=== PATIENT | female | born 1995 | race Caucasian/White ===

== ENCOUNTER 2019-01-10 11:02 | Observation (INO) ==
[2019-01-10] MEDS ORDERED: Isovue-370 500 ML BOTTLE IVP ONE (11:28)
[2019-01-10 12:27] LABS: BUN/Creatinine Ratio 9 (6-26); Blood Urea Nitrogen 8 mg/dL (6-20); Calcium 9.2 mg/dL (8.6-10.3); Carbon Dioxide 24 mEq/L (23-29); Chloride 101 mEq/L (98-107); Glucose 98 mg/dL (70-105); Osmolality,Calculated 284 (280-300); Potassium 3.5 mEq/L (3.5-5.1); Sodium 138 mEq/L (136-145); eGFR For African Americans > 60 (> 60); eGFR For Non-African Americans > 60 (> 60)
--- NOTE | 2019-01-10 13:55 | Emergency Department Note ---
Disposition Clinical Impression: Pulmonary emboli Qualifiers: Pulmonary embolism type: unspecified Chronicity: acute Acute cor pulmonale presence: without acute cor pulmonale Qualified Code(s): I26.99 - Other pulmonary embolism without acute cor pulmonale Disposition: Home, Self-Care Instructions: Pulmonary Embolism (GEN) Reasons to Return/Additional Instructions: Return to the emergency department for worsening chest pain or shortness of breath. Take your medication as prescribed. Follow-up with your primary care physician in 2-3 days to establish care for your newly diagnosed pulmonary emboli. You were also given the number for a database security expert, schedule an appointment by calling their office for further testing to make sure he did not have a clotting disorder. Referrals: [facility] [Outside] NONE,PCP [Primary Care Provider] - Grady Lauren MD [Partnered Physician] - Forms: ED Satisfaction Letter Time of Disposition: 14:46 General Adult HPI - General Chief complaint: ED Arrhythmia/Palpitations Stated complaint: SOB, "heart racing" Time Seen by Provider: 01/10/19 11:18 Source: patient Mode of arrival: ambulatory Limitations: no limitations Nursing Notes Reviewed: Yes Vital Signs Reviewed: Yes - History of Present Illness HPI Narrative: 23F with no significant past medical history presents emergency department with worsening difficulty in breathing and the feeling that her heart is racing. She recently got home from a 6 hour car ride. She is noticed some redness on her left anterior mc but states that this started several days before the car ride. She has not noticed any unilateral leg swelling or leg pain. She does not take any control, has no history of cancer, and does not think she has any family history of blood clots. Patient initially thought it was anxiety after drinking and taking MDMA and that she was dehydrated this morning but the feeling would not go away. Pain Scale: 0 - Related Data Home Medications Medication Instructions Recorded Confirmed Sertraline 05/28/18 Allergies Allergy/AdvReac Type Severity Reaction Status Date / Time No Known Allergies Allergy Verified 05/28/18 13:39 All systems ED: reviewed and negative except as stated. Review of Systems: As Per HPI Constitutional: Denies: fever, chills, weakness Cardiovascular: Reports: chest pain, palpitations, dyspnea on exertion Respiratory: Denies: cough, dyspnea, wheezes Gastrointestinal: Denies: abdominal pain, nausea, vomiting, diarrhea Musculoskeletal: Reports: back pain. Denies: neck pain Integumentary: Denies: rash Neurological: Denies: headache Psychiatric: Reports: anxiety Past Medical History - Past Medical History Attestation: Yes The following information was validated with the patient. Source: patient Medical history: Reports: hypertension Psychiatric history: Reports: no psych history - Social History Smoking Status: Current every day smoker Smokeless Tobacco Status: No Alcohol use: Reports: occasionally Drug use: Reports: other Physical Exam - General Limitations: no limitations General appearance: alert, in no apparent distress - Head Head exam: atraumatic, normocephalic - Eye Eye exam: Present: normal appearance, PERRL, EOMI - ENT ENT exam: normal exam, normal oropharynx - Neck Neck exam: Present: normal inspection. Absent: tenderness - Chest Chest inspection: Present: normal inspection. Absent: tenderness - Respiratory Respiratory exam: Present: normal lung sounds bilaterally, wheezes - Cardiovascular Cardiovascular exam: Present: normal rhythm, tachycardia - Abdominal Exam Abdominal exam: Present: soft, Non-Tender. Absent: distention, guarding, rebound, rigidity - Extremities Exam Extremities exam: Present: normal inspection. Absent: tenderness, pedal edema - Neurological Exam Neurological exam: Present: alert, oriented X3 - Psychiatric Psychiatric exam: Present: normal affect, normal mood - Skin Skin exam: Present: warm, dry, intact Course Vital Signs Temperature 98.7 F 01/10/19 11:04 Pulse Rate 140 01/10/19 11:04 Respiratory Rate 22 01/10/19 11:04 Blood Pressure 179/120 01/10/19 11:04 O2 Sat by Pulse Oximetry 98 01/10/19 11:04 Temperature 98.7 F 01/10/19 11:12 Pulse Rate 106 01/10/19 13:38 Respiratory Rate 16 01/10/19 13:38 Blood Pressure 169/101 01/10/19 13:38 O2 Sat by Pulse Oximetry 99 01/10/19 13:38 Oxygen Delivery Oxygen Delivery Room Air Medical Decision Making - [place] Narrative Medical decision making narrative: Patient presents with tachycardia and difficulty in breathing for the past day. Due to her history of recent long travel and her significant tachycardia we will obtain EKG, basic labs, hCG and the do a CTA of the patient's chest to rule out PE. 1312 - spoke with Dr. Angelo from [place] [facility] who reports the patient has small bilateral pulmonary emboli in her lower lobes of her lungs. We will consult with the hospitalist team to determine if the patient is a candidate for NOAC therapy. If so we will discharge the patient home on blood thinners, if not we will admit her for heparin to treat her pulmonary emboli. 1440 - patient meets criteria for home treatment was a relatively low for her pulmonary emboli. We will discharge her home at this time. Dr. Vazquez has called in the prescription to her pharmacy for her general to use and the patient was given information on how to decrease the monthly payments for these her alto. She has no further requests this time. - Medical Records Medical records reviewed: Yes I reviewed the patient's medical records. - Lab Data Lab results reviewed: Yes I reviewed the patient's lab results. Result diagrams: 01/10/19 11:15 Lab Results 01/10/19 Range/Units 11:15 Sodium 138 (136-145) mEq/L Potassium 3.5 (3.5-5.1) mEq/L Chloride 101 (98-107) mEq/L Carbon Dioxide 24 (23-29) mEq/L BUN 8 (6-20) mg/dL Creatinine 0.91 (0.60-1.20) mg/dL Est GFR ( Amer) > 60 (> 60) Est GFR (Non-Af Amer) > 60 (> 60) BUN/Creatinine Ratio 9 (6-26) Glucose 98 (70-105) mg/dL Calculated Osmolality 284 (280-300) Calcium 9.2 (8.6-10.3) mg/dL Beta HCG, Quant < 1 (Less than 5) mIU/mL - Radiology Data Radiology results reviewed: Yes I reviewed the patient's radiology results. - EKG Data EKG #1 EKG attestation: Yes I reviewed and interpreted this EKG. EKG results narrative: EKG obtained at 11:15 on 01/10/2019 Heart rate 1 29 bpm, VT interval 138, QRS duration 88, QT 300, QTC [address] Sinus tachycardia with minimal ST segment depression in the lateral leads. S1Q3T3 noted in addition. No other T-wave Abnormalities. No significant changes when compared to previous EKG dated 12/04/2011. Critical Care Time Critical Care Time: Yes Total Critical Care Time: 35 Attestation: Medical care time 35 minutes managing PE. Attestation Statement - Attestation Attestation: Patient was seen with resident physician. I reviewed the history, physical, assessment and plan, and agree with the findings. I also personally evaluated this patient and had [id number] time with this patient. 23-year-old female presents emergency Department with palpitations and chest discomfort with deep inspiration. Patient states she recently was on the long car trip approximately 6 hours in a car. She noticed a small area on the anterior mc of her left leg which was mildly reddened. Then she started to d evelop shortness of breath and some chest discomfort earlier today. She came in for evaluation and treatment. She said it feels like her heart is racing, though she did acknowledge to using ecstasy sometime last night. And she is not been drinking many fluids. Review of systems as above remainder negative. Physical exam vital signs tachycardic afebrile. ENT is unremarkable. Heart regular rhythm and rate. Lungs are clear. Abdomen is obese nontender. Extremities very mild erythema to the anterior left mc but no other rashes or lesions seen. No posterior calf or thigh tenderness. No swelling to lower extremities. Neurologically intact. Skin the mild rashes noted on the left leg. ED course. CTA of the chest revealed bilateral small pulmonary embolisms. Remainder of workup was largely unremarkabl. We spoke with the hospitalist service to discuss the options of admission with heparinization versus home therapy with arash also. We jumped at work at insurance companies to figure out which treatment options are going to be available to the patient. Hemodynamically the patient remained stable while here she was oxygenating well. I we worked with the hospitalist to provide internal medicine consultation. We are able to Main her also to her pharmacy. Patient was informed of her options. She opted to go home and do outpatient management. Will also encourage outpatient ultrasound of the lower extremities. This point we do not need to do it emergently because the patient will be treated anyway. She is also given return to the ER instructions if her symptoms worsen at all. Patient was given her first dose of anticoagulant while in the emergency department. Hemodynamically she did well was improved through her stay and was stable for discharge. I agree with resident physician assessment and plan. Critical care time 35 minutes. ED procedures. I reviewed the patient's EKG as well as the resident physician interpretation and I agree with the findings.
--- NOTE | 2019-01-10 14:42 | Internal Medicine Consult Note ---
Date of Encounter: 01/10/19 Time of Encounter: 14:20 - Assessment and Plan (1) Pulmonary emboli Current Visit: Yes Status: Acute Assessment and plan: Pt presents to ED with tachycardia and dyspnea. Found to have bilateral small segmental PEs. Appears to have risk of recent long car ride. No sign of RV strain. Pt tachycardic but hemodynamically stable and not hypoxic. At this time I have called her pharmacy and the starter pack of Xarelto is $55. I have given ED the card for free first month and for the $10 co-pay if she is eligible. Before starting anticoagulation she should have drawn hypercoagulable panel. Start Xarelto prior to discharge from here. Stop JUUL. I have given her some instructions about anticoagulants. Venous duplex as outpatient. Thank you for the consult. Qualifiers: Pulmonary embolism type: other Chronicity: acute Acute cor pulmonale presence: without acute cor pulmonale Qualified Code(s): I26.99 - Other pulmonary embolism without acute cor pulmonale (2) HTN (hypertension) Current Visit: Yes Status: Acute Qualifiers: Hypertension type: essential hypertension Qualified Code(s): I10 - Essential (primary) hypertension - Time Spent With Patient Total time spent is greater than 50% in coordination of care (as documented) at patient's floor/unit and/or counseling patient: Internal Medicine - CN: HPI - Data of Consult Consult date: 01/10/19 - Consult Narrative Reason for consult: Pulmonary embolism History of present illness: Ms. Carlisle is a 23 year old female with hx of HTN (not taking her meds) presented to ED with dyspnea and tachycardia. Found to have bilateral segmental PEs. Did have recent travel in car. Has small red area on leg but no calf pain or swelling. No family hx of clots. No prior hx. Not taking OCPs. Quit smoking but uses JUUL. Pt admits to associated tachycardia/palpitation. Some pleuritic chest discomfort. No other symptoms. Mother at bedside and corroborates history. Past Med Surg Social Fam HX - Past Medical History Medical history: hypertension Psychiatric history: no psych history - Social History Smoking Status: Current every day smoker Smokeless Tobacco Status: No Alcohol use: occasionally Drug use: other - Additional Family History Additional family history: No family hx of clotting disorder - Constitutional Constitutional: fatigue - EENT Eyes: no blurry vision, no loss of vision Ears: no decreased hearing Nose, mouth and throat: no dry mouth, no mouth pain, no sore throat - Cardiovascular Cardiovascular ROS IM: chest pain, palpitations - Respiratory Respiratory: dyspnea, dyspnea on exertion - Gastrointestinal Gastrointestinal: no abdominal pain, no melena, no vomiting - Genitourinary Genitourinary: no dysuria, no urinary frequency - Musculoskeletal Musculoskeletal ROS IM: no back pain, no neck pain - Integumentary Integumentary IM: new lesions (Red area noted on front of L leg) - Neurological Neurological ROS: no confusion, no numbness - Endocrine Endocrine IM: no cold intolerance, no polyphagia - Hematologic/Lymphatic Hematologic/Lymphatic: no easy bleeding - Allergic/Immunologic Allergic/Immunologic: no itchy eyes Internal Medicine - CN: Meds Sertraline 05/28/18 [History] 3 Allergy/AdvReac Type Severity Reaction Status Date / Time No Known Allergies Allergy Verified 05/28/18 13:39 Hospitalist - CN: Exam - Constitutional Vitals: Temp Pulse Resp BP Pulse Ox 98.7 F 106 16 169/101 99 01/10/19 11:12 01/10/19 13:38 01/10/19 13:38 01/10/19 13:38 01/10/19 13:38 General appearance IM: Present: A&O X 3, pleasant, answers questions appropriately Exam: See below - Head Head exam: Present: atraumatic, normocephalic - Eye Eye exam: Present: EOMI, conjuntiva pink - ENT ENT exam: Present: mucous membranes moist - Neck Neck exam general surgery: Present: normal inspection, supple. Absent: nuchal rigidity - Respiratory Respiratory exam: Present: CTAB. Absent: rales, rhonchi, wheezes - Cardiovascular Cardiovascular exam IM: Present: tachycardia. Absent: systolic murmur - GI/Abdominal GI/Abdominal exam IM: Present: soft, no peritoneal signs. Absent: tenderness - Extremities Exam Extremities exam IM: Absent: calf tenderness, joint swelling Additional comments: Small area of erythema anterior tibial area on L leg. - Back Exam Back exam: Present: full ROM - Neurological Exam Neurological exam: Present: alert, oriented X3, no focal deficits - Skin Skin exam IM: Present: dry, erythema, warm. Absent: rash Internal Medicine - CN: Reslt - Labs CBC & Chem 7: 01/10/19 11:15 Labs: BMP 01/10/19 11:15 Sodium 138 Potassium 3.5 Chloride 101 Carbon Dioxide 24 BUN 8 Creatinine 0.91 Glucose 98 Calcium 9.2 - Impressions Impressions Chest CTA 01/10/19 11:28 IMPRESSION: 1. Bilateral lower lobe pulmonary emboli in segmental lower lobe pulmonary arteries 2. 10 mm noncalcified pulmonary nodule right lower lobe, stable compared to previous CT done 11/29/2015. No further imaging evaluation suggested 3. Findings were discussed with Yesenia Jean-Baptiste at 1:12 pm on 01/10/2019. D/ / Anselmo Eaton MD / Anselmo Eaton MD Interpreting Provider: Anselmo Eaton MD Consult Discharge Plan - Plan Instructions: Pulmonary Embolism (GEN) Referrals: [facility] [Outside] NONE,PCP [Primary Care Provider] -
[2019-01-10] MEDS ORDERED: *HR* Rivaroxaban 15 MG TABLET PO STA (14:44)
--- NOTE | 2019-01-10 15:09 | Internal Med History&Physical ---
Date of Encounter: 01/10/19 Time of Encounter: 14:20 Internal Medicine - H&P: HPI Chief complaint: Dyspnea Admitted From: Emergency Dept Plans for Post Hospital Care: Home History of present illness: Ms. Carlisle is a 23 year old female with hx of HTN (not taking her meds) presented to ED with dyspnea and tachycardia. Found to have bilateral segmental PEs. Did have recent travel in car. Has small red area on leg but no calf pain or swelling. No family hx of clots. No prior hx. Not taking OCPs. Quit smoking but uses JUUL. Pt admits to associated tachycardia/palpitation. Some pleuritic chest discomfort. No other symptoms. Mother at bedside and corroborates history. We were going to discharge her on Xarelto. Her mother then reported that she remembered that when patient was young she had tonisillectomy and had hemorrhage and had to return to OR. She had dental surgery and issues with bleeding and th ey were told it might be mild von Willdebrands disease. Pt stated that her last menses was so heavy it "ran down my leg." This information was given to us after Xarelto was given. Because of this and her HTN she will be admitted. Past Med Surg Social Fam HX - Past Medical History Medical history: hypertension Psychiatric history: no psych history - Past Surgical History Additional surgical history: tonsillectomy - Social History Smoking Status: Current every day smoker Smokeless Tobacco Status: No Alcohol use: occasionally Drug use: other - Additional Family History Additional family history: No family hx of clotting disorders per mother. Internal Medicine - H&P: Meds Sertraline 05/28/18 [History] Allergy/AdvReac Type Severity Reaction Status Date / Time No Known Allergies Allergy Verified 05/28/18 13:39 All Systems PM: A 10-system review of systems was performed and is negative for pertinent f indings except as documented above in the HPI. - Constitutional Constitutional: no fatigue, no falls - EENT Eyes: no blurry vision, no loss of vision Ears: no decreased hearing Nose, mouth and throat: no dry mouth, no mouth pain, no sinus pain - Cardiovascular Cardiovascular ROS IM: chest pain, dyspnea, dyspnea on exertion, palpitations - Respiratory Respiratory: dyspnea, dyspnea on exertion, no wheezing - Gastrointestinal Gastrointestinal: no abdominal pain, no diarrhea, no melena, no vomiting - Genitourinary Genitourinary: no difficulty urinating, no urinary frequency Menstruation: period heavy - Musculoskeletal Musculoskeletal ROS IM: no back pain, no stiffness - Integumentary Integumentary IM: new lesions Additional comments: Red area noted from of L leg - Neurological Neurological ROS: no dizziness, no numbness - Endocrine Endocrine IM: no excessive sweating - Hematologic/Lymphatic Hematologic/Lymphatic: no easy bleeding - Allergic/Immunologic Allergic/Immunologic: no tongue swelling - Constitutional Vitals: Temp Pulse Resp BP Pulse Ox 98.7 F 106 16 169/101 99 01/10/19 11:12 01/10/19 13:38 01/10/19 13:38 01/10/19 13:38 01/10/19 13:38 General appearance: Present: A&O X 3, pleasant, answers questions appropriately Exam: See below - Head Head exam: Present: atraumatic, normocephalic - Eye Eye exam: Present: EOMI, conjuntiva pink - ENT ENT exam: Present: mucous membranes moist - Neck Neck exam general surgery: Present: normal inspection, supple. Absent: thyromegaly - Respiratory Respiratory exam: Present: CTAB. Absent: rales, rhonchi, wheezes - Cardiovascular Cardiovascular exam: Present: tachycardia. Absent: systolic murmur - GI/Abdominal GI/Abdominal exam: Present: soft. Absent: tenderness - Extremities Exam Extremities exam: Present: tenderness, warm Additional comments: small red area anterior tibial region L leg - Neurological Exam Neurological exam: Present: alert, oriented X3, no focal deficits - Skin Skin exam: Present: dry, erythema, warm Internal Med - H&P Results - Labs CBC & Chem 7: 01/10/19 11:15 Labs: BMP 01/10/19 11:15 Sodium 138 Potassium 3.5 Chloride 101 Carbon Dioxide 24 BUN 8 Creatinine 0.91 Glucose 98 Calcium 9.2 - Impressions ITS Impressions Chest CTA 01/10/19 11:28 IMPRESSION: 1. Bilateral lower lobe pulmonary emboli in segmental lower lobe pulmonary arteries 2. 10 mm noncalcified pulmonary nodule right lower lobe, stable compared to previous CT done 11/29/2015. No further imaging evaluation suggested 3. Findings were discussed with Yesenia Jean-Baptiste at 1:12 pm on 01/10/2019. D/ / Anselmo Eaton MD / Anselmo Eaton MD Interpreting Provider: Anselmo Eaton MD - Assessment and Plan (1) Pulmonary emboli Current Visit: Yes Status: Acute Assessment and plan: Pt presents to ED with tachycardia and dyspnea. Found to have bilateral small segmental PEs. Appears to have risk of recent long car ride. No sign of RV strain. Pt tachycardic but hemodynamically stable and not hypoxic. Xarelto has been called to her pharmacy and is $55. Cards for free month and co-pay to be given. Due to her history of bleeding that was relayed to us after Xarelto given, she will be monitored in the hospital tonight. Will start heparin drip later today and consider try to transition to Xarelto again tomorrow. Consider heme consult. Check venous duplex tomorrow. Qualifiers: Pulmonary embolism type: other Chronicity: acute Acute cor pulmonale presence: without acute cor pulmonale Qualified Code(s): I26.99 - Other pulmonary embolism without acute cor pulmonale (2) HTN (hypertension) Current Visit: Yes Status: Chronic Assessment and plan: Uncontrolled. Pt has not been taking prescribed med. Will start Norvasc. Qualifiers: Hypertension type: essential hypertension Qualified Code(s): I10 - Essential (primary) hypertension (3) Electronic cigarette use Current Visit: Yes Status: Chronic Assessment and plan: Cessation counselling. (4) Morbid obesity with BMI of 40.0-44.9, adult Current Visit: Yes Status: Chronic - Time Spent With Patient Total time spent is greater than 50% in coordination of care (as documented) at patient's floor/unit and/or counseling patient:
[2019-01-10] MEDS ORDERED: Ondansetron 4 MG/2 ML VIAL IVP PRN (15:35)
[2019-01-10] MEDS ORDERED: Mag Hydrox/Al Hydrox/Simeth 30 ML UDC PO PRN (15:35)
[2019-01-10] MEDS ORDERED: Acetaminophen 325 MG TABLET PO PRN (15:35)
[2019-01-10] MEDS ORDERED: MOM Conc 10 ML UD.LIQ PO PRN (15:35)
[2019-01-10] MEDS ORDERED: Naloxone 0.4 MG/ML INJ IVP PRN (15:35)
[2019-01-10 17:30] LABS: Heparin anti-factor XA UFH 0.79 IU/mL (0.30-0.70); INR 1.2; Prothrombin Time 13.8 Seconds (9.4-12.1)
[2019-01-10] MEDS: amLODIPine 5 MG TABLET PO SCH (18:19)
[2019-01-10] MEDS: 0.9 % Sodium Chloride 1,000 ML IVC SCH (18:19)
--- NOTE | 2019-01-10 20:51 | Event Note ---
Date of Encounter: 01/10/19 Time of Encounter: 20:36 Alerted by pts. nurse KASSIE Seaman that the patient was having increased anxiety. Nurse place patient on O2 via nasal cannula with vital signs 156/96 BP, HR 83, SPO2 98% on 1 L, temp 100, respirations 18. Patient was requesting something to relax and had hydroxyzine earlier which she stated really helped a little bit. Patient reported to nurse that she did [place] (MDMA - 3, 4- methylenedioxymethamphetamine) last night with friends. STAT urine tox screen, CBC, CMP, and hepatic panel ordered. Urine tox screen positive for cocaine and marijuana as well. NO BETA BLOCKERS. Nurse reports pt. has temp of 100F and is diaphoretic which is common w/Ecstasy. Fever to be controlled w/acetaminophen (hepatic panel WNL). 0.9 IV fluids running at 75/hr. Nurse instructed to continue monitoring this pt. very closely and alert me immediately of any adverse reactions.
[2019-01-10 21:57] LABS: Basophils % 0.6 %; Eosinophils # 0.1 K/mcL (0.0-0.6); Eosinophils % 2.1 %; Hematocrit 37.9 % (35.3-44.9); Hemoglobin 12.7 g/dL (11.5-15.4); Immature Granulocytes % 0.3 % (0-4); Lymphocytes # 1.6 K/mcL (0.6-4.6); Lymphocytes % 23.5 %; Mean Corpuscular HGB Conc 33.5 g/dL (31.6-35.5); Mean Corpuscular Hemoglobin 30.5 pg (28.0-33.3); Mean Corpuscular Volume 90.9 fL (83.0-100.0); Mean Platelet Volume 9.8 fL (9.4-12.4); Monocytes % 14.1 %; Platelet Count 334 K/mcL (140-400); Red Blood Count 4.17 M/mcL (3.82-4.97); Red Cell Distribution Width 13.5 % (11.5-14.5); Segmented Neutrophils % 59.4 %; White Blood Count 6.7 K/mcL (4.3-11.1)
[2019-01-10 22:10] LABS: Alanine Aminotransferase 32 Units/L (7-52); Albumin 4.1 g/dL (3.5-5.7); Albumin/Globulin Ratio 1.8 (1.1-2.2); Alkaline Phosphatase 67 Units/L (34-104); Aspartate Amino Transferase 22 Units/L (13-39); BUN/Creatinine Ratio 10 (6-26); Bilirubin,Direct 0.1 mg/dL (0.0-0.2); Bilirubin,Indirect 0.5 mg/dL (0.0-1.2); Bilirubin,Total 0.6 mg/dL (0.3-1.0); Blood Urea Nitrogen 8 mg/dL (6-20); Carbon Dioxide 25 mEq/L (23-29); Chloride 104 mEq/L (98-107); Globulin 2.3 g/dL (2.4-3.5); Glucose 94 mg/dL (70-105); Osmolality,Calculated 284 (280-300); Potassium 3.3 mEq/L (3.5-5.1); Sodium 138 mEq/L (136-145); Total Protein 6.4 g/dL (6.4-8.9); eGFR For African Americans > 60 (> 60); eGFR For Non-African Americans > 60 (> 60)
[2019-01-10 23:35] LABS: Amphetamine Screen,Urine Negative ng/mL (Cutoff=1000); Barbiturate Screen,Urine Negative ng/mL (Cutoff=200); Benzodiazepines Screen,Urine Negative ng/mL (Cutoff=200); Cannabinoid Screen,Urine Positive ng/mL (Cutoff = 50); Cocaine Screen,Urine Positive ng/mL (Cutoff= 300); Opiate Screen,Urine Negative ng/mL (Cutoff=300); Phencyclidine Screen,Urine Negative ng/mL (Cutoff=25)
[2019-01-11 02:37] LABS: Hematocrit 40.5 % (35.3-44.9); Hemoglobin 13.4 g/dL (11.5-15.4); Mean Corpuscular HGB Conc 33.1 g/dL (31.6-35.5); Mean Corpuscular Volume 93.8 fL (83.0-100.0); Mean Platelet Volume 9.8 fL (9.4-12.4); Platelet Count 317 K/mcL (140-400); Red Blood Count 4.32 M/mcL (3.82-4.97); Red Cell Distribution Width 13.4 % (11.5-14.5)
[2019-01-11 02:42] LABS: INR 1.3; Prothrombin Time 15.3 Seconds (9.4-12.1)
[2019-01-11 02:55] LABS: BUN/Creatinine Ratio 11 (6-26); Blood Urea Nitrogen 10 mg/dL (6-20); Calcium 8.9 mg/dL (8.6-10.3); Carbon Dioxide 27 mEq/L (23-29); Chloride 103 mEq/L (98-107); Glucose 88 mg/dL (70-105); Magnesium 2.2 mg/dL (1.6-2.6); Osmolality,Calculated 286 (280-300); Potassium 3.3 mEq/L (3.5-5.1); Sodium 139 mEq/L (136-145); eGFR For African Americans > 60 (> 60); eGFR For Non-African Americans > 60 (> 60)
[2019-01-11] MEDS ORDERED: *HR* Heparin 5,000 UNIT/ML VIAL IVP PRN ×2 (03:00)
[2019-01-11] MEDS ORDERED: Heparin 25,000 UNIT/250 ML D5W 25,000 UNIT/250 ML IV.SOLN IVC SCH (03:00)
[2019-01-11 04:45] LABS: INR 1.3; Prothrombin Time 14.3 Seconds (9.4-12.1)
[2019-01-11] MEDS: 0.9 % Sodium Chloride 1,000 ML IVC SCH (07:41)
[2019-01-11] MEDS: amLODIPine 5 MG TABLET PO SCH (10:31)
--- NOTE | 2019-01-11 10:31 | Internal Med Progress Note ---
<Milton Ray - Last Filed: 01/11/19 14:47> Hospitalist Progress Note - Encounter Date of Encounter: 01/11/19 Time of Encounter: 14:49 - Subjective Interval History: Patient examined at bedside today. No acute events overnight, no new complaints. Patient reports chest pain is better today although it is still there. Reports shortness of breath is slightly improving. Reports rash on the lower left leg is migrating up, non-pruritic. Reports she gets a little anxious sometimes due to her health. Denies fever, chills, night sweats, nausea, vomiting, diarrhea, headaches, abdominal pain, dysuria, hematochezia. - Exam Vitals: Temp Pulse Resp BP Pulse Ox 97.7 F 73 16 144/88 100 01/11/19 07:21 01/11/19 07:21 01/11/19 07:21 01/11/19 07:21 01/11/19 07:21 Exam: General: Pleasant, conversant female in bed in no acute distress. Head: Atraumatic and normocephalic, no lymphadenopathy. CV: RRR, S1S2, normal capillary refill <1s Resp: CTA B/L. Chest rises and falls symmetrically without accessory muscle use. GI: Abdomen is soft, non-tender, and nondistended. MSK: No clubbing, cyanosis, or edema. Macular rash noted on left lower leg which is spreading superiorly, ~5cm from where it originated on Friday near the ankle. Skin: Warm, dry, and intact. Neuro: AOx3. Patient is cooperative with exam and answers questions appropriat boy. No apparent focal deficits. - Assessment and Plan (1) Pulmonary emboli Current Visit: Yes Status: Acute Assessment and Plan: No sign of RV strain. Pt hemodynamically stable and not hypoxic. Pt on Heparin 25k units. Echo didn't show any ischemic changes or pulm HTN. LVEF 65%. Plan: - Continue Heparin (2) HTN (hypertension) Current Visit: Yes Status: Chronic Assessment and Plan: BP ranging 130s-160s/80-100s. Pt not compliant with her meds. UA +cocaine and +THC which could affect BP altho the two have opposing effects. Plan: - Continue amlodipine - Pt encouraged to follow-up with a PCP and establish care (3) Anxiety Current Visit: Yes Status: Acute Assessment and Plan: Admits to life being stressful. Pt hyperventilates and becomes tachcardic when anxious. Plan - Continue hydroxyzine prn (4) Alcohol use Current Visit: Yes Status: Acute Assessment and Plan: Admits to ~5-6 beers/day. Counseled on adverse effects of excessive drinking given her bleeding history and current health state. (5) Morbid obesity with BMI of 40.0-44.9, adult Current Visit: Yes Status: Chronic - Time Spent with Patient Total time spent is greater than 50% in coordination of care (as documented) at patient's floor/unit and/or counseling patient: Internal Medicine: Result - Labs CBC & Chem 7: 01/11/19 02:22 01/11/19 02:22 Labs: Short CBC 01/10/19 01/11/19 Range/Units 21:34 02:22 WBC 6.7 7.0 (4.3-11.1) K/mcL Hgb 12.7 13.4 (11.5-15.4) g/dL Hct 37.9 40.5 (35.3-44.9) % Plt Count 334 317 (140-400) K/mcL Neutrophils # 4.0 (1.6-8.9) K/mcL BMP 01/10/19 01/10/19 01/11/19 11:15 21:34 02:22 Sodium 138 138 139 Potassium 3.5 3.3 L 3.3 L Chloride 101 104 103 Carbon Dioxide 24 25 27 BUN 8 8 10 Creatinine 0.91 0.81 0.91 Glucose 98 94 88 Calcium 9.2 9.0 8.9 Liver Function 01/10/19 Range/Units 21:34 Total Bilirubin 0.6 (0.3-1.0) mg/dL Direct Bilirubin 0.1 (0.0-0.2) mg/dL AST 22 (13-39) Units/L ALT 32 (7-52) Units/L Alkaline Phosphatase 67 (34-104) Units/L Albumin 4.1 (3.5-5.7) g/dL - ABG Interpretation ABG results: PT/INR, D-dimer PT 14.3 Seconds (9.4-12.1) H 01/11/19 04:09 - Impressions Impressions Chest CTA 08/18/19 11:28 IMPRESSION: 1. Bilateral lower lobe pulmonary emboli in segmental lower lobe pulmonary arteries 2. 10 mm noncalcified pulmonary nodule right lower lobe, stable compared to previous CT done 11/29/2015. No further imaging evaluation suggested 3. Findings were discussed with Yesenia Jean-Baptiste at 1:12 pm on 01/10/2019. D/ / Anselmo Eaton MD / Anselmo Eaton MD Interpreting Provider: Anselmo Eaton MD Consult Discharge Plan - Plan Referrals: NONE,PCP [Primary Care Provider] - <StefaniawhitneyraadMehrdad - Last Filed: 01/11/19 18:17> Hospitalist Progress Note - Encounter Date of Encounter: 01/11/19 - Exam Vitals: Temp Pulse Resp BP Pulse Ox 98.0 F 61 14 142/94 99 01/11/19 15:28 01/11/19 15:28 01/11/19 15:28 01/11/19 15:28 01/11/19 15:28 - Assessment and Plan (1) Pulmonary emboli Current Visit: Yes Status: Acute (2) HTN (hypertension) Current Visit: Yes Status: Chronic (3) Electronic cigarette use Current Visit: Yes Status: Chronic (4) Morbid obesity with BMI of 40.0-44.9, adult Current Visit: Yes Status: Chronic - Time Spent with Patient Total time spent is greater than 50% in coordination of care (as documented) at patient's floor/unit and/or counseling patient: Internal Medicine: Result - Labs CBC & Chem 7: 01/11/19 02:22 01/11/19 02:22 Labs: Short CBC 01/10/19 01/11/19 Range/Units 21:34 02:22 WBC 6.7 7.0 (4.3-11.1) K/mcL Hgb 12.7 13.4 (11.5-15.4) g/dL Hct 37.9 40.5 (35.3-44.9) % Plt Count 334 317 (140-400) K/mcL Neutrophils # 4.0 (1.6-8.9) K/mcL BMP 01/10/19 01/11/19 21:34 02:22 Sodium 138 139 Potassium 3.3 L 3.3 L Chloride 104 103 Carbon Dioxide 25 27 BUN 8 10 Creatinine 0.81 0.91 Glucose 94 88 Calcium 9.0 8.9 Liver Function 01/10/19 Range/Units 21:34 Total Bilirubin 0.6 (0.3-1.0) mg/dL Direct Bilirubin 0.1 (0.0-0.2) mg/dL AST 22 (13-39) Units/L ALT 32 (7-52) Units/L Alkaline Phosphatase 67 (34-104) Units/L Albumin 4.1 (3.5-5.7) g/dL - ABG Interpretation ABG results: PT/INR, D-dimer PT 14.3 Seconds (9.4-12.1) H 01/11/19 04:09 D-Dimer < 215 ng/mLFEU (0-500) 01/11/19 17:22 - Impressions Impressions Echocardiogram 01/11/19 15:37 Impressions: LVEF 65%. Normal LV chamber size, wall thickness and function. Normal right ventricular size and function. No significant valvular dysfunction. No evidence of pulmonary hypertension. Left Ventricular Wall Motion: Rest Echo Findings All wall segments showed normal motion. Findings: Study Quality * Technically sub-optimal due to poor echocardiographic windows. ECG Findings * Normal sinus rhythm. Left Ventricle * LVEF 65%. * Normal LV chamber size, wall thickness and systolic function. * Normal left ventricular diastolic function. Right Ventricle * Normal right ventricular size and function. Left Atrium * Normal left atrial size. Right Atrium * Normal right atrial size. Interatrial Septum * Interatrial septum not well evaluated. Aortic Valve * Trileaflet aortic valve with normal function. * No aortic stenosis. * No aortic regurgitation. Mitral Valve * Normal mitral valve structure. * No mitral stenosis. * Trace mitral regurgitation. Tricuspid Valve * Normal tricuspid valve structure and function. * No tricuspid regurgitation. * No tricuspid stenosis. * Unable to estimate RVSP due to lack of TR jet. * No evidence of pulmonary hypertension. * Estimated RA pressure is 3 mmHg. Pulmonic Valve * Pulmonic valve is not well visualized. * No pulmonic stenosis. * No pulmonic regurgitation. Aorta * Normally sized aortic root. Pericardium * The pericardium appears normal. IVC * The IVC is not dilated. * > 50% respiratory change - Attending Attestation examined this patient and my medical decision-making was reviewed with the Medical Student. I agree with the documented findings, disposition and treatment plan as described except to the extent set forth below. <Milton Ray - Last Filed: 01/11/19 14:47> (1) Pulmonary emboli Qualifiers: Pulmonary embolism type: other Chronicity: acute Acute cor pulmonale presence: without acute cor pulmonale Qualified Code(s): I26.99 - Other pulmonary embolism without acute cor pulmonale (2) HTN (hypertension) Qualifiers: Hypertension type: essential hypertension Qualified Code(s): I10 - Essential (primary) hypertension <Mehrdad Hyde - Last Filed: 01/11/19 18:17> (1) Pulmonary emboli Qualifiers: Pulmonary embolism type: other Chronicity: acute Acute cor pulmonale p resence: without acute cor pulmonale Qualified Code(s): I26.99 - Other pulmonary embolism without acute cor pulmonale (2) HTN (hypertension) Qualifiers: Hypertension type: essential hypertension Qualified Code(s): I10 - Essential (primary) hypertension
[2019-01-11] MEDS: Heparin 25,000 UNIT/250 ML D5W 25,000 UNIT/250 ML IV.SOLN IVC SCH ×2 (11:39→19:21)
--- NOTE | 2019-01-11 15:55 | Oncology Inp Consult Note ---
<Anselmo Garduno - Last Filed: 01/11/19 19:22> Date of Encounter: 01/11/19 Time of Encounter: 15:25 Assessment and Plan (1) Pulmonary emboli Status: Acute Assessment and plan: Acute pulmonary embolism which is bilateral and segmental. Unclear origin of the clot, however likely DVT on the left leg which dislodged. This did happen relatively quickly. Although there is concern that the patient does have a bleeding diathesis, this point she does require anticoagulation. We will continue the workup for bleeding diathesis with some more labs, however we do recommend continued use of anticoagulation for at least 6 months. We will await von Willebrand panel, other factor deficiencies as well which will likely be hard to interpret in the setting of acute thrombosis. Qualifiers: Pulmonary embolism type: other Chronicity: acute Acute cor pulmonale presence: without acute cor pulmonale Qualified Code(s): I26.99 - Other pulm onary embolism without acute cor pulmonale (2) Alcohol use Status: Acute Assessment and plan: Patient does have significant alcohol use which could also impact coagulation. We have recommended to the patient that she sees her alcohol use which she says that she plans to do. (3) HTN (hypertension) Status: Chronic Assessment and plan: Management per primary team. Qualifiers: Hypertension type: essential hypertension Qualified Code(s): I10 - Essential (primary) hypertension (4) Morbid obesity with BMI of 40.0-44.9, adult Status: Chronic Assessment and plan: This is a risk factor for clotting. (5) Electronic cigarette use Status: Chronic - Data of Consult Patient: new to practice Consult date: 01/11/19 Requesting Physician: Mehrdad Hyde MD Primary Care Provider: PCP NONE - Consult Narrative Reason for consult: Suspected von willebrand disease History of present illness: Ms. Carlisle is a 23yo woman who presented to the ED at [facility] on 01/10/19 for complaint of tachycardia and shortness of breath. Hematology and oncology was consulted on 01/11/19 for workup of suspected coagulopathy. In short, Ms. Carlisle is a 23-year-old woman with history of hypertension who presented to the ED with complaint of tachycardia and shortness of breath for 1 day duration. The patient says that she woke up in the morning yesterday feeling very short of breath with very rapid heart rate. She had been to symptomatic night before to go out to a club with her friends, and when she came back she went to bed. When she woke up in the morning she noticed that she had a red rash on the anterior portion of her left leg as well as some pain in her left leg and maybe some swelling as well. She started to stretch her leg and about an hour later she noticed that she immediately got some rapid heart rate as well as some shortness of breath. She tried some breathing exercises as well as she tried to relax, however nothing seemed to help. She does admit that, the night before, she did take some MDMA and she was worried that this may have had something to do with it. When nothing helps, she did present to the emergency department. In the emergency room, the patient did have a CTA of her chest which demonstrated bilateral lower lobe pulmonary emboli in the segmental lower lobe pulmonary arteries and a 10 mm noncalcified pulmonary nodule in the right lower lobe which was present on previous studies. The patient was started on Xarelto initially, however her mother expressed some concerns of bleeding in her past. Apparently, the patient has had a history of excessive bleeding. She notes that when she was 4 years old, the patient had a tonsillectomy and adenoidectomy at which time she was unable to stop bleeding and had return to the OR for times. Additionally, the patient had another oral surgery as several years later at which time she again had uncontrolled bleeding and had to return to the emergency room because she soaked her sleeping bag with blood. She says that she did not have any issues after this time for quite a long time, however recently has had very heavy menses which have soaked her pads and tampons with blood and heavy clots that are hard to control. To her knowledge, this is not something that has happened within her family before. She also is not aware of anyone in her family having clotting disorders. Social Hx: The patient does admit to 5 year history smoking, however 6 months ago she did switch to vaping. She admits to drinking 6-8 mixed drinks per day f or 4 years and feels that she has a drinking problem. She does admit to occasional use of MDMA as well as cocaine, denies IV drug use. 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 He does live alone, but she will be staying with her parents after this hospitalization. Past Med Surg Social Fam HX - Past Medical History Medical history: hypertension Psychiatric history: no psych history - Past Surgical History Additional surgical history: tonsillectomy - Social History Smoking Status: Current every day smoker Smokeless Tobacco Status: No Alcohol use: occasionally Drug use: other Medications and Allergies No Known Home Drugs 01/10/19 [History] Allergy/AdvReac Type Severity Reaction Status Date / Time No Known Allergies Allergy Verified 05/28/18 13:39 Review of systems: Constitutional: Denies fevers, chills, weight loss, generalized fatigue Head/Neck: Denies MANZO, neck stiffness EENT: Denies vision changes/blurriness, rhinorrhea, congestion, sore throat CVS: Denies chest pain, CERNA, orthopnea, edema, PND . Admits to palpitations and rapid heart rate Pulm: Denies cough, sputum, hemoptysis, wheezing. Admits to SOB GI: Denies abdominal pain, nausea, vomiting, diarrhea, constipation, melena, hematemasis : Denies dysuria, increased frequency, urgency, hematuria Heme: Denies ease of bleeding or bruising MSK: Denies joint pain, limited ROM Skin: Denies ulcers. Admits to superficial rash on left anterior lower leg whic h has grown in size. It is painful and red to the touch Neuro: Denies MANZO, paresthesias, focal deficits, ataxia Oncology - Exam - Constitutional Exam: Gen: Vitals noted. No acute distress. Morbidly obese Eyes: anicteric sclerae, moist conjunctivae; no lid-lag; Pupils equal and reactive to light HENT: Atraumatic; oropharynx clear with moist mucous membranes and no mucosal ulcerations; normal hard and soft palate Neck: Trachea midline; supple, no thyromegaly or lymphadenopathy Cardiac: RRR, no murmur, +S1/S2 Pulmonary: CTA bilaterally, no wheezes, rales or rhonchi, equal chest expansion Abdomen: soft, nontender, no guarding. No masses or hepatosplenomegaly MSK: ROM intact, no joint swelling noted Extremities: no BLE edema, nontender calf, no cyanosis or clubbing. Skin: Normal temperature, turgor and texture; no ulcers or subcutaneous nodules. There is an erythematous rash noted on the left anterior leg which is not well demarcated but does have some warmth. It is non-blanching. Neuro: moves all extremities, no focal deficits. Psych: Appropriate mood and behavior. A&Ox3 Consult Discharge Plan - Plan Referrals: NONE,PCP [Primary Care Provider] - <Laci Pillai - Last Filed: 01/12/19 09:15> Date of Encounter: 01/11/19 - Data of Consult Requesting Physician: Mehrdad Hyed MD Primary Care Provider: PCP NONE Inpatient Charges Provider: Dr. Nidia Pillai Consult - Inpatient: [id number] - Attending Attestation I examined this patient and my medical decision-making was reviewed with Dr. Placido Garduno. I agree with the documented findings, disposition and treatment plan as described except to the extent set forth below. 1. Acute bilateral PE. Bilateral lower extremity venous Doppler negative. Echocardiogram showed ejection fraction of 65%. Normal right ventricular strain. This happened so quickly after she walked 8 at [place] yesterday. Apparently she did take some drugs including MDM May. She did test positive for cocaine and marijuana in the urine drug screen I am not sure if those have any bearing on her diagnosis Her risk factors include obesity. She is not on any estrogen supplement and she is not . This is her first episode. She does drink alcohol on a regular basis and strongly advised to minimize drinking. She smoked in the past but quit smoking 4 months ago Would recommend anticoagulation for at least 6 months. 2. She has history of bleeding. She had excessive bleeding after tonsillectomy at age 4. Also heavy intermittent menstrual bleeding. Also bleeding after dental procedure. Denied any blood in the urine or epistaxis. No family history of bleeding or clotting disorders. We will check von Willebrand panel. PT and PTT unremarkable on admission. Unlikely any factor deficiency. May consider workup for factor deficiency once she gets better from this acute PE. We will follow d-dimer
--- NOTE | 2019-01-12 05:05 | Event Note ---
Date of Encounter: 01/11/19 Time of Encounter: 23:41 Alerted by patient's nurse KASSIE Baeza that patient had been admitted for PEs and was currently on heparin drip. Patient had Dopplers done of lower extremities which were negative but was not complaining of pain and tenderness and left calf and ankle area. Went to see patient who was tearful, diaphoretic, extremely anxious. Measured patient's left and right calves which were equal in size. Patient's left mc has erythema which could resemble cellulitis. Patient wanted to know why she was hurting and felt so badly. I explained to the patient that she had used ecstasy, marijuana, and cocaine and was now withdrawing which was causing her hyperthermia and agitation. I instructed the nurse to continue monitoring this patient very closely and alert me immediately of any adverse changes. I am reluctant to give patient any benzodiazepines at this time due to her current use of cocaine and ecstasy.
[2019-01-12 05:52] LABS: Basophils # 0.1 K/mcL (0.0-0.2); Basophils % 0.8 %; Eosinophils # 0.3 K/mcL (0.0-0.6); Eosinophils % 3.5 %; Hematocrit 38.4 % (35.3-44.9); Hemoglobin 13.2 g/dL (11.5-15.4); Immature Granulocytes % 0.5 % (0-4); Lymphocytes % 23.2 %; Mean Corpuscular HGB Conc 34.4 g/dL (31.6-35.5); Mean Corpuscular Hemoglobin 31.1 pg (28.0-33.3); Mean Corpuscular Volume 90.6 fL (83.0-100.0); Mean Platelet Volume 9.9 fL (9.4-12.4); Monocytes # 0.7 K/mcL (0.0-1.3); Neutrophils # 5.5 K/mcL (1.6-8.9); Platelet Count 333 K/mcL (140-400); Red Blood Count 4.24 M/mcL (3.82-4.97); Red Cell Distribution Width 13.3 % (11.5-14.5); White Blood Count 8.5 K/mcL (4.3-11.1)
[2019-01-12 06:00] LABS: INR 0.9; Prothrombin Time 10.2 Seconds (9.4-12.1)
[2019-01-12 06:03] LABS: Activated Partial Thrombo Time 65.3 Seconds (26.0-36.0)
[2019-01-12 06:12] LABS: Alanine Aminotransferase 31 Units/L (7-52); Albumin 4.2 g/dL (3.5-5.7); Albumin/Globulin Ratio 1.9 (1.1-2.2); Alkaline Phosphatase 67 Units/L (34-104); Aspartate Amino Transferase 22 Units/L (13-39); BUN/Creatinine Ratio 13 (6-26); Bilirubin,Total 0.3 mg/dL (0.3-1.0); Blood Urea Nitrogen 10 mg/dL (6-20); Calcium 8.9 mg/dL (8.6-10.3); Carbon Dioxide 26 mEq/L (23-29); Chloride 103 mEq/L (98-107); Globulin 2.2 g/dL (2.4-3.5); Glucose 108 mg/dL (70-105); Osmolality,Calculated 288 (280-300); Potassium 3.8 mEq/L (3.5-5.1); Sodium 139 mEq/L (136-145); Total Protein 6.4 g/dL (6.4-8.9); eGFR For African Americans > 60 (> 60); eGFR For Non-African Americans > 60 (> 60)
--- NOTE | 2019-01-12 07:33 | Electrocardiograph Report ---
[place] [facility] Test Date: 2019-01-10 Pat Name: 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
[2019-01-12] MEDS: amLODIPine 5 MG TABLET PO SCH (08:21)
[2019-01-12] MEDS ORDERED: *HR* Heparin 5,000 UNIT/ML VIAL IVP PRN ×2 (14:39)
[2019-01-12 15:28] VITALS: BP 146/94
[2019-01-12] MEDS ORDERED: *HR* Rivaroxaban 15 MG TABLET PO SCH ×2 (15:30→21:00)
--- NOTE | 2019-01-12 17:22 | Discharge Summary ---
<Kenia Raymundo L - Last Filed: 01/12/19 17:37> - NOTES TO OUTPATIENT PROVIDER Notes to Outpatient Provider: Carlisle came in to the hospital for SOB and was found to have b/l PE. Orders not resulted at time of discharge: Pending orders 01/10/19 14:58 Antithrombin III, Activity Routine Factor V Leiden Routine Lupus Anticoagulant Panel Routine Protein C Antigen, Total Routine Protein C, Functional Routine Protein S Antigen, Total Routine Protein S, Functional Routine Prothrombin [id number] Mutation Routine 01/11/19 17:22 Von Willebrand Panel Routine Date of Encounter: 01/12/19 Time of Encounter: 08:55 - Discharge Diagnosis (1) Pulmonary emboli Priority: Primary Status: Acute Assessment and Plan: No sign of RV strain. Pt hemodynamically stable and not hypoxic. Pt on Heparin 25k units. Echo didn't show any ischemic changes or pulm HTN. LVEF 65%. - Discharged on Xarelto 15mg BID and Norvasc 5mg - Prescription written for Orthomicronor to be filled at pharm of patients choosing. Qualifiers: Pulmonary embolism type: other Chronicity: acute Acute cor pulmonale presence: without acute cor pulmonale Qualified Code(s): I26.99 - Other pulmonary embolism without acute cor pulmonale (2) Alcohol use Priority: Secondary Status: Acute Assessment and Plan: Patient instructed to decrease or discontinue use of alcohol while on Xarelto. (3) HTN (hypertension) Priority: Secondary Status: Chronic Assessment and Plan: Discharged patient on Norvasc 5 mg for hypertension. - Instructed patient to follow-up and establish care with a PCP in the next 5 days Qualifiers: Hypertension type: essential hypertension Qualified Code(s): I10 - Essential (primary) hypertension Hospital course: Ms. Carlisle is a 23 year old female who presented with sob. A CXR, CTA and D dimer was completed. CTA showed bilateral pulmonary embolisms. A vascular duplex was also completed which was negative for DVT or SVTs. Patient was started on Hepa rin drip. On day two of admission she was stable for discharge. She was discharged on Xarelto 15mg BID and Norvasc with instructions to establish care with a PCP within the next 5 days. Discharge discussed with: patient - Time Spent with Patient Total time spent providing and/or coordinating discharge services: - Discharge Medications Prescriptions: New Rivaroxaban [Xarelto] 15 mg PO BID 21 Days #42 tablet Rivaroxaban [Xarelto] 20 mg PO DAILY #30 tablet amLODIPine [Norvasc] 5 mg PO DAILY #30 tablet Home Medications: Rivaroxaban [Xarelto] 15 mg PO BID 21 Days #42 tablet 01/12/19 [Rx] Rivaroxaban [Xarelto] 20 mg PO DAILY #30 tablet 01/12/19 [Rx] amLODIPine [Norvasc] 5 mg PO DAILY #30 tablet 01/12/19 [Rx] Allergies/Adverse Reactions: Allergy/AdvReac Type Severity Reaction Status Date / Time No Known Allergies Allergy Verified 05/28/18 13:39 Date of admission: 01/10/19 15:32 Primary care physician: PCP NONE Consults: 01/10/19 14:09 Consult to Hospitalist [CONS] Stat Consulting Provider: Hospitalist Nusrat Reason for Consult: PEs - home medication help Call Completed: Yes 01/11/19 09:11 Consult to Oncology Hematology [CONS] Routine Consulting Provider: Kenia Raymundo Reason for Consult: possible [place] Call Completed: Yes Discharging clinician: Kenia Raymundo Anticipated date of discharge: 01/12/19 - Constitutional Vitals: Temp Pulse Resp BP Pulse Ox 97.9 F 87 18 146/94 97 01/12/19 15:21 01/12/19 15:21 01/12/19 15:21 01/12/19 15:21 01/12/19 15:21 Exam: General: Pleasant, conversant female in bed in no acute distress. Head: Atraumatic and normocephalic, no lymphadenopathy. CV: RRR, S1S2, normal capillary refill <1s Resp: CTA B/L. Chest rises and falls symmetrically without accessory muscle use. GI: Abdomen is soft, non-tender, and nondistended. MSK: No clubbing, cyanosis, or edema. Macular rash noted on left lower leg significantly better. Skin: Warm, dry, and intact. Neuro: AOx3. Patient is cooperative with exam and answers questions appropriat boy. No apparent focal deficits. - Patient Status Disposition: Home, Self-Care Condition: Good Functional capacity at discharge: independent ambulation Overall status at discharge: patient is back to baseline - Discharge Instructions Instructions: Amlodipine (By mouth), Rivaroxaban (By mouth), Pulmonary Embolism (DC) Follow Up With: Norma White [Resident] - 01/19/19 9:00 am Additional Instructions: Follow up with your PCP in 3-5 days for reevaluation. Continue to take amlodipine 5mg daily for blood pressure. Try to increase your daily activity and eat a healthy diet. Stop smoking and limit alcohol intake. Continue taking xarelto 15mg twice daily for 21 days (01/13/2019-02/02/2019), then take 20mg once daily (beginning on 02/03/2019). Take progesterone control pill once daily as directed. Continue to use condoms to protect yourself from STIs. Return to the emergency department if you develop fevers, chills, chest pain, worsening shortness of breath, or if any new concerns arise. <Mehrdad Hyde - Last Filed: 01/12/19 23:09> Orders not resulted at time of discharge: Pending orders 01/10/19 14:58 Antithrombin III, Activity Routine Factor V Leiden Routine Lupus Anticoagulant Panel Routine Protein C Antigen, Total Routine Protein C, Functional Routine Protein S Antigen, Total Routine Protein S, Functional Routine Prothrombin [id number] Mutation Routine 01/11/19 17:22 Von Willebrand Panel Routine Date of Encounter: 01/12/19 - Discharge Diagnosis (1) Pulmonary emboli Status: Acute Qualifiers: Pulmonary embolism type: other Chronicity: acute Acute cor pulmonale presence: without acute cor pulmonale Qualified Code(s): I26.99 - Other pulmonary embolism without acute cor pulmonale (2) HTN (hypertension) Status: Chronic Qualifiers: Hypertension type: essential hypertension Qualified Code(s): I10 - Essential (primary) hypertension (3) Electronic cigarette use Status: Chronic (4) Morbid obesity with BMI of 40.0-44.9, adult Status: Chronic Hospital course: Ms. Carlisle is a 23 year old female - Time Spent with Patient Total time spent providing and/or coordinating discharge services: Date of admission: 01/10/19 15:32 Primary care physician: PCP NONE Consults: 01/10/19 14:09 Consult to Hospitalist [CONS] Stat Consulting Provider: Hospitalist Nusrat Reason for Consult: PEs - home medication help Call Completed: Yes 01/11/19 09:11 Consult to Oncology Hematology [CONS] Routine Consulting Provider: Kenia Raymundo Reason for Consult: possible [place] Call Completed: Yes - Constitutional Vitals: Temp Pulse Resp BP Pulse Ox 97.9 F 87 18 146/94 97 01/12/19 15:21 01/12/19 15:21 01/12/19 15:21 01/12/19 15:21 01/12/19 15:21 - Attending Attestation I examined this patient and my medical decision-making was reviewed with the resident physician. I agree with the documented findings, disposition and treatment plan as described except to the extent set forth below. 23 year old female with history of recreational drug use, hypertension, obesity, chronic alcohol use presented to ED for chest pain and shortness of breath. A CTA chest showed bilateral PE. She was started on a heparin drip. There were no signs of hemodynamic instability. Anticoagulation in this patient was complicated by a possible history of easy bleeding with heavy menstrations and easy bleeding during dental procedures. She was monitored on a heparin drip and there were no acute bleeding episodes. She was transitioned to Xarelto without issue. She was placed on antihypertensive medications and BP improved. We did have an in-depth discussion of alcohol use and its potential for harm, especially with bleeding and coagulopathies, and hypertension as well. Patient states she has not had a drink in over 3 days, there was no signs of withdrawal. She states she is ready to quit. Resources offered to patient, but she states she plans to stop drinking without resources. We also prescribed progesterone- only contraception as she will be taking medications that are teratogens. She is in agreement with this and plans to take this as prescribed as well.
[2019-01-12 17:34] LABS: APTT (LE Anticoag) 39 sec (32-48); Diluted Russell Viper Venom 33 sec (33-44); PT (LE-Anticoag) 12.8 sec (12.0-15.5)
[2019-01-13] MEDS ORDERED: *HR* Rivaroxaban 15 MG TABLET PO SCH (21:00)
[2019-01-14 23:15] LABS: FACV Specimen WHOLE BLOOD
[2019-01-15 00:14] LABS: Prothrombin G20210A Specimen WHOLE BLOOD
[2019-01-15 15:32] LABS: Prothrombin G20210A Mut Result NEGATIVE
[2019-01-15 15:53] LABS: Fac V Leiden R506Q Mut Result NEGATIVE
[2019-01-16 11:34] LABS: Ristocetin Cofactor-VWF Active 68 % (51-215); Von Willebrand Factor Ag 94 % (52-214)
== END 2019-01-12 18:05 | disposition home or self-care (01) ==
LOC: 3BNU 11:02 → EMEROOARM 11:02 → SUATTDRO 15:32 → 3BNU 16:20
PROVIDERS: ADMIT Internal Medicine; ATTEND Student in an Organized Health Care Education/Training Program